=== PATIENT | female | born 1980 | race Caucasian/White ===

== ENCOUNTER 2017-07-28 23:29 | Observation (INO) | payer OTHER ==
[~2017-07-28] VITALS: Ht 172.7 cm; Wt 99.8 kg
[~2017-07-28 23:29] MED LIST: ACET325; AMOCLA500 PO; AZIT250 PO; CALZINTL TP; CEPH500 PO; HYDACE5 PO; INDO50 PO; KETO10 PO; OXYACE5T PO; PRED20 PO; PROM25 PO; RXHYDACE PO; RXOXYACE PO; TRAM50 PO; [UNRECOGNIZED DRUG - OTHER]
[2017-07-28 23:51] LABS: BASOPHILS ABSOLUTE AUTO 0.04 K/mm3 (0.00-0.23); BASOPHILS PERCENT AUTO 0 % (0-2); EOSINOPHILS ABSOLUTE AUTO 0.37 K/mm3 (0.00-0.68); EOSINOPHILS PERCENT AUTO 2 % (0-6); Hematocrit 47.7 % (33.0-51.0); Hemoglobin 15.7 g/dL (11.5-16.0); Mean Corpuscular HGB 30.3 pg (26.0-34.0); Mean Corpuscular HGB Conc 32.9 g/dL (31.5-36.5); Mean Corpuscular Volume 92 fL (80-100); Mean Platelet Volume 11.3 fL (9.1-12.4); Platelet Count 266 K/mm3 (150-400); RDW Coefficient Variation 13.4 % (11.7-14.2); RDW Standard Deviation 45.5 fL (35.1-46.3); Red Blood Cell Count 5.18 M/mm3 (3.80-5.20); White Blood Cell Count 16.21 K/mm3 (4.00-11.30)
[2017-07-28 23:52] LABS: IMMATURE GRAN ABSOLUTE AUTO 0.04 K/mm3 (0.00-0.10); IMMATURE GRAN PERCENT AUTO 0 % (0-1); LYMPHOCYTES ABSOLUTE AUTO 8.12 K/mm3 (0.84-5.20); LYMPHOCYTES PERCENT AUTO 50 % (21-46); MONOCYTES ABSOLUTE AUTO 1.45 K/mm3 (0.16-1.47); MONOCYTES PERCENT AUTO 9 % (4-13); NEUTROPHILS ABSOLUTE AUTO 6.19 K/mm3 (1.96-9.15); NEUTROPHILS PERCENT AUTO 38 % (41-73)
[2017-07-29 00:16] LABS: Alanine Aminotransfer (ALT/SGP 27 U/L (12-78); Albumin, Blood 4.3 g/dL (3.4-5.0); Albumin/Globulin Ratio 1.1 (0.8-1.8); Alk Phos 89 U/L (50-136); Anion Gap 17 mmol/L (6-16); Aspartate Aminotrans (AST/SGOT 22 U/L (12-37); Bilirubin, Total 0.2 mg/dL (0.1-1.0); Blood Urea Nitrogen 12 mg/dL (8-24); Bun/Creatinine Ratio 11.9 (12.0-20.0); CO2, Blood 17 mmol/L (21-32); Calcium, Blood 8.4 mg/dL (8.5-10.1); Chloride, Blood 113 mmol/L (98-108); Creatinine, Blood 1.01 mg/dL (0.40-1.00); Ethanol (Alcohol), Blood, Med 109 mg/dL; Globulin, Blood 3.8 g/dL (2.2-4.0); Glomerular Filtration Rate >60 (60-); Glucose, Blood 166 mg/dL (70-99); Potassium, Blood 3.8 mmol/L (3.5-5.5); Salicylate 5.1 mg/dL (2.8-20.0); Sodium, Blood 147 mmol/L (136-145); Thyroxine (T4) 8.6 ug/dL (4.8-13.9); Total Protein, Blood 8.1 g/dL (6.4-8.2)
[2017-07-29 00:17] LABS: Acetaminophen, Random <2.0 ug/mL (10.0-30.0)
[2017-07-29] MEDS ORDERED: IRON150C PO (00:24)
[2017-07-29 02:18] LABS: Source, Urine Clean Catch
[2017-07-29 02:25] LABS: Bilirubin, Urine Neg (Neg); Blood, Urine 1+ (Neg); Glucose Qualitative, Urine Neg (Neg); Ketones, Urine Neg (Neg); Leukocyte Esterase, Urine Neg (Neg); Nitrite, Urine Neg (Neg); Protein, Urine Neg (Neg); Specific Gravity, Urine 1.015 (1.003-1.022); Urobilinogen, Urine NORM (Normal)
[2017-07-29 02:35] LABS: U Amphetamine Screen Not Detected; U Barbituate Screen Not Detected; U Benzodiazapine Screen DETECTED; U Buprenorphine Screen Not Detected; U Cannabinoids Screen DETECTED; U Cocaine Screen Not Detected; U Methadone Screen Not Detected; U Methamphetamine Screen Not Detected; U Opiates Screen Not Detected; U Oxycodone Screen Not Detected; U Phencyclidine Screen Not Detected; U Propoxyphene Screen Not Detected
[2017-07-29 02:38] LABS: Appearance, Urine Clear (Clear); Bacteria Rare /hpf; Color, Urine Yellow (P-Yellow); Red Blood Cells, Urine Rare /hpf (0-2); Squamous Epithelial Cells Few /hpf (Few); White Blood Cells, Urine Not Seen /hpf (0-5)
[2017-07-29 02:39] LABS: Granular Casts 0-2 /lpf (0); Mucus Light (0-Heavy)
[2017-07-30] MEDS ORDERED: BUDE10.22 INH (11:23)
[2017-07-30] MEDS ORDERED: Synthroid50 MCG PO (11:23)
== END 2017-07-30 12:16 | disposition home or self-care (01) ==
LOC: ER 23:29 → EOR 23:30
PROVIDERS: Emergency Medicine
DX: F10.129 Alcohol abuse with intoxication, unspecified (principal); F23 Brief psychotic disorder; J45.909 Unspecified asthma, uncomplicated; F32.9 Major depressive disorder, single episode, unspecified; E03.9 Hypothyroidism, unspecified; Z88.0 Allergy status to penicillin; Z88.1 Allergy status to other antibiotic agents; Z88.8 Allergy status to other drugs, medicaments and biological substances; Z90.49 Acquired absence of other specified parts of digestive tract; Y90.5 Blood alcohol level of 100-119 mg/100 ml
CPT/HCPCS: 36415; 80053; 81001; 81025; 84436; 84443; 85025; 93005; 93010; 96361; 96372; 99285; G0378; G0480; J1200; J1630; J2060; J7030; P9612

== ENCOUNTER 2018-12-08 15:51 | Emergency (ER) | payer OTHER ==
[~2018-12-08] VITALS: Ht 167.6 cm; Wt 95.2 kg
[~2018-12-08 15:51] MED LIST changes: +BUDE10.22 INH; +IRON150C PO; +Synthroid50 MCG PO
[2018-12-08 16:24] LABS: BASOPHILS ABSOLUTE AUTO 0.02 K/mm3 (0.00-0.23); BASOPHILS PERCENT AUTO 0 % (0-2); EOSINOPHILS ABSOLUTE AUTO 0.37 K/mm3 (0.00-0.68); EOSINOPHILS PERCENT AUTO 4 % (0-6); Hematocrit 43.2 % (33.0-51.0); Hemoglobin 14.6 g/dL (11.5-16.0); IMMATURE GRAN ABSOLUTE AUTO 0.03 K/mm3 (0.00-0.10); IMMATURE GRAN PERCENT AUTO 0 % (0-1); LYMPHOCYTES ABSOLUTE AUTO 4.19 K/mm3 (0.84-5.20); LYMPHOCYTES PERCENT AUTO 39 % (21-46); MONOCYTES ABSOLUTE AUTO 0.86 K/mm3 (0.16-1.47); MONOCYTES PERCENT AUTO 8 % (4-13); Mean Corpuscular HGB 30.9 pg (26.0-34.0); Mean Corpuscular HGB Conc 33.8 g/dL (31.5-36.5); Mean Corpuscular Volume 92 fL (80-100); Mean Platelet Volume 11.2 fL (9.1-12.4); NEUTROPHILS ABSOLUTE AUTO 5.21 K/mm3 (1.96-9.15); NEUTROPHILS PERCENT AUTO 49 % (41-73); Platelet Count 217 K/mm3 (150-400); RDW Standard Deviation 43.9 fL (35.1-46.3); Red Blood Cell Count 4.72 M/mm3 (3.80-5.20); White Blood Cell Count 10.68 K/mm3 (4.00-11.30)
[2018-12-08 16:43] LABS: Alanine Aminotransfer (ALT/SGP 42 U/L (12-78); Albumin, Blood 3.9 g/dL (3.4-5.0); Albumin/Globulin Ratio 1.2 (0.8-1.8); Alk Phos 92 U/L (50-136); Anion Gap 7 mmol/L (6-16); Aspartate Aminotrans (AST/SGOT 24 U/L (12-37); Bilirubin, Total 0.3 mg/dL (0.1-1.0); Blood Urea Nitrogen 18 mg/dL (8-24); Bun/Creatinine Ratio 24.2 (12.0-20.0); CO2, Blood 24 mmol/L (21-32); Calcium, Blood 9.1 mg/dL (8.5-10.1); Chloride, Blood 112 mmol/L (98-108); Creatinine, Blood 0.75 mg/dL (0.40-1.00); Globulin, Blood 3.3 g/dL (2.2-4.0); Glomerular Filtration Rate >60 (60-); Glucose, Blood 104 mg/dL (70-99); Potassium, Blood 3.9 mmol/L (3.5-5.5); Sodium, Blood 143 mmol/L (136-145); Total Protein, Blood 7.2 g/dL (6.4-8.2)
[2018-12-08 16:52] LABS: Source, Urine Clean Catch
[2018-12-08 16:55] LABS: Bilirubin, Urine Neg (Neg); Blood, Urine Neg (Neg); Glucose Qualitative, Urine Neg (Neg); Ketones, Urine Neg (Neg); Leukocyte Esterase, Urine Neg (Neg); Nitrite, Urine Neg (Neg); Protein, Urine Neg (Neg); Urobilinogen, Urine NORM (Normal)
[2018-12-08 17:00] LABS: Appearance, Urine Clear (Clear); Color, Urine Yellow (P-Yellow)
== END 2018-12-08 20:45 | disposition home or self-care (01) ==
LOC: ER 15:51
PROVIDERS: Physician Assistant
DX: R10.9 Unspecified abdominal pain (principal); Z88.0 Allergy status to penicillin; Z88.1 Allergy status to other antibiotic agents; Z88.8 Allergy status to other drugs, medicaments and biological substances; F41.0 Panic disorder [episodic paroxysmal anxiety]; J45.909 Unspecified asthma, uncomplicated; F17.210 Nicotine dependence, cigarettes, uncomplicated
CPT/HCPCS: 36415; 74176; 80053; 81003; 81025; 83690; 85025; 96361; 96374; 96375; 96376; 99284-25; A9270; J1885; J2270; J2405; J7030

== ENCOUNTER 2019-02-05 07:57 | Inpatient (IN) | payer OTHER ==
[~2019-02-05] VITALS: Ht 167.6 cm; Wt 90.7 kg
[2019-02-05 08:43] LABS: BASOPHILS ABSOLUTE AUTO 0.02 K/mm3 (0.00-0.23); BASOPHILS PERCENT AUTO 0 % (0-2); EOSINOPHILS ABSOLUTE AUTO 0.33 K/mm3 (0.00-0.68); EOSINOPHILS PERCENT AUTO 3 % (0-6); Hematocrit 45.8 % (33.0-51.0); Hemoglobin 15.3 g/dL (11.5-16.0); IMMATURE GRAN ABSOLUTE AUTO 0.04 K/mm3 (0.00-0.10); IMMATURE GRAN PERCENT AUTO 0 % (0-1); LYMPHOCYTES ABSOLUTE AUTO 2.54 K/mm3 (0.84-5.20); LYMPHOCYTES PERCENT AUTO 26 % (21-46); MONOCYTES ABSOLUTE AUTO 1.18 K/mm3 (0.16-1.47); MONOCYTES PERCENT AUTO 12 % (4-13); Mean Corpuscular HGB 29.9 pg (26.0-34.0); Mean Corpuscular HGB Conc 33.4 g/dL (31.5-36.5); Mean Corpuscular Volume 90 fL (80-100); Mean Platelet Volume 11.2 fL (9.1-12.4); NEUTROPHILS PERCENT AUTO 59 % (41-73); Platelet Count 262 K/mm3 (150-400); RDW Coefficient Variation 12.4 % (11.7-14.2); RDW Standard Deviation 41.1 fL (35.1-46.3); Red Blood Cell Count 5.12 M/mm3 (3.80-5.20); White Blood Cell Count 9.91 K/mm3 (4.00-11.30)
[2019-02-05 09:09] LABS: Alanine Aminotransfer (ALT/SGP 29 U/L (12-78); Albumin, Blood 3.7 g/dL (3.4-5.0); Albumin/Globulin Ratio 0.9 (0.8-1.8); Alk Phos 116 U/L (50-136); Anion Gap 9 mmol/L (6-16); Aspartate Aminotrans (AST/SGOT 14 U/L (12-37); Bilirubin, Total 0.5 mg/dL (0.1-1.0); Blood Urea Nitrogen 13 mg/dL (8-24); Bun/Creatinine Ratio 14.8 (12.0-20.0); CO2, Blood 22 mmol/L (21-32); Calcium, Blood 9.1 mg/dL (8.5-10.1); Chloride, Blood 112 mmol/L (98-108); Creatinine, Blood 0.88 mg/dL (0.40-1.00); Globulin, Blood 4.1 g/dL (2.2-4.0); Glomerular Filtration Rate >60 (60-); Glucose, Blood 133 mg/dL (70-99); Potassium, Blood 4.1 mmol/L (3.5-5.5); Sodium, Blood 143 mmol/L (136-145); Total Protein, Blood 7.8 g/dL (6.4-8.2)
[2019-02-05] MEDS ORDERED: ALBU90OI INH (09:11)
--- NOTE | 2019-02-05 11:45 | NUR ---
pt arrived to room 235 from er dept [facility] with spouse oriented to room called pharmacy will restart the flagyl pt removed down in the er and dropped it on the floor per the wildland fire fighter pt has est 1/4 of the dose discussed with pt to call and i will sl her iv and let her smoke anytime she wants
--- NOTE | 2019-02-05 12:16 | NUR ---
dr rosenberg ans service called re pain meds and nausea meds abx orders
--- NOTE | 2019-02-05 13:15 | NUR ---
FENT 50 MCG IVP GIVEN FOR PAIN GEN LOWER ABD PT REQ TO BE UNHOOKED TO GO OUT TO SMOKE USING WC S/O PUSHING HER OUT
--- NOTE | 2019-02-05 14:40 | NUR ---
PT RESTING VOIDED WILL SEND SAMPLE TO LAB UNABLE TO GET SAMPLE EARLIER IN ER
[2019-02-05 15:03] LABS: Source, Urine Clean Catch
[2019-02-05 15:05] LABS: Bilirubin, Urine Neg (Neg); Blood, Urine 1+ (Neg); Glucose Qualitative, Urine Neg (Neg); Ketones, Urine 1+ (Neg); Leukocyte Esterase, Urine 1+ (Neg); Nitrite, Urine Neg (Neg); Protein, Urine 2+ (Neg); Urobilinogen, Urine NORM (Normal)
--- NOTE | 2019-02-05 15:27 | NUR ---
pt transported to day surg via [facility]
--- NOTE | 2019-02-05 15:47 | NUR ---
Surgical site prepped with 2% Chlorhexidine cloth wipe. History, Chart, Medications and Allergies reviewed before start of procedure. Lungs clear T/O to Auscultation. Patient confirms NPO status and agrees with scheduled surgery. Pre-Op teaching done. Pt verbalizes understanding.
[2019-02-05 16:16] LABS: Appearance, Urine Clear (Clear); Color, Urine Yellow (P-Yellow)
[2019-02-05 16:17] LABS: Bacteria Mod /hpf; Red Blood Cells, Urine 0-2 /hpf (0-2); Squamous Epithelial Cells Few /hpf (Few); White Blood Cells, Urine 0-2 /hpf (0-5)
--- NOTE | 2019-02-05 19:13 | NUR ---
pt back to room report given to patricia pt having dry heaves groggy luis emptied
--- NOTE | 2019-02-05 20:45 | NUR ---
Patient insist she goes outside to smoke. Educated patient on potential risks. Patient still insists. Pt accompanied by family, pushed in chair.
--- NOTE | 2019-02-06 05:05 | NUR ---
Pt alert and oriented x4. VSS. IVF infusing well. Dressing to abd D/C/I. CRISTA drained 140ml Serosanguineous fluid. Ambulating to bathroom with standby assist. Voiding freely. Going outside to smoke. Complaints of abd Pain and nausea/vomiting. Medicated as ordered.
--- NOTE | 2019-02-06 09:41 | NUR ---
PT OUTSIDE TO SMOKE AT 0745 VIA WHEELCHAIR AND SO. DECLINED SMOKING CESSATION EDUCATION AND NICOTINE PATCH. PT VERBALIZED SAFETY AND FALL PREVENTION MEASURES.
--- NOTE | 2019-02-06 17:11 | NUR ---
DR. OSCAR IN TO SEE PT AT THIS TIME.
--- NOTE | 2019-02-06 17:53 | NUR ---
PT OUTSIDE TO SMOKE WITH HER FATHER VIA WHEELCHAIR.
--- NOTE | 2019-02-06 18:10 | NUR ---
SHIFT SUMMARY PT A&OX4 WITH VSS T/O SHIFT. C/O NAUSEA AND HEADACHE THIS AFTERNOON, DOCTOR NOTIFIED AND NEW ORDERS OBTAINED FOR MEDICATION. PT MEDICATED PER EMAR AND ADVISED TO DECREASED PO INTAKE UNTIL NAUSEA SUBSIDES. CRISTA DRAIN IN PLACE AND DRAINING SS T/O SHIFT. PATIENT AMBULATED IN HALLWAY AND IND IN ROOM. ENCOURAGED TO CONT. AMBULATION AND I.S. USE. PT CURRENTLY OUTSIDE SMOKING WITH FATHER.
[2019-02-07 04:11] LABS: BASOPHILS ABSOLUTE AUTO 0.02 K/mm3 (0.00-0.23); BASOPHILS PERCENT AUTO 0 % (0-2); EOSINOPHILS ABSOLUTE AUTO 0.46 K/mm3 (0.00-0.68); EOSINOPHILS PERCENT AUTO 5 % (0-6); Hematocrit 38.2 % (33.0-51.0); Hemoglobin 12.1 g/dL (11.5-16.0); IMMATURE GRAN ABSOLUTE AUTO 0.02 K/mm3 (0.00-0.10); IMMATURE GRAN PERCENT AUTO 0 % (0-1); LYMPHOCYTES ABSOLUTE AUTO 1.98 K/mm3 (0.84-5.20); LYMPHOCYTES PERCENT AUTO 21 % (21-46); MONOCYTES ABSOLUTE AUTO 1.11 K/mm3 (0.16-1.47); MONOCYTES PERCENT AUTO 12 % (4-13); Mean Corpuscular HGB 29.6 pg (26.0-34.0); Mean Corpuscular HGB Conc 31.7 g/dL (31.5-36.5); NEUTROPHILS ABSOLUTE AUTO 5.83 K/mm3 (1.96-9.15); NEUTROPHILS PERCENT AUTO 62 % (41-73); Platelet Count 219 K/mm3 (150-400); RDW Coefficient Variation 12.7 % (11.7-14.2); RDW Standard Deviation 43.8 fL (35.1-46.3); Red Blood Cell Count 4.09 M/mm3 (3.80-5.20); White Blood Cell Count 9.42 K/mm3 (4.00-11.30)
[2019-02-07 04:13] LABS: Mean Corpuscular Volume 93 fL (80-100)
[2019-02-07 04:32] LABS: Anion Gap 4 mmol/L (6-16); Blood Urea Nitrogen 8 mg/dL (8-24); Bun/Creatinine Ratio 8.8 (12.0-20.0); CO2, Blood 27 mmol/L (21-32); Calcium, Blood 8.1 mg/dL (8.5-10.1); Chloride, Blood 114 mmol/L (98-108); Creatinine, Blood 0.91 mg/dL (0.40-1.00); Glomerular Filtration Rate >60 (60-); Glucose, Blood 87 mg/dL (70-99); Potassium, Blood 3.7 mmol/L (3.5-5.5); Sodium, Blood 145 mmol/L (136-145)
--- NOTE | 2019-02-07 04:37 | NUR ---
Patient alert and oriented. VSS. CRISTA had 75ml serosanguineous drainage. Complaints of Nausea and pain, medicated as ordered. Ambulating to bathroom. Voiding freely. Passing gas.
--- NOTE | 2019-02-07 16:21 | NUR ---
PT OUT OF ROOM AT THIS TIME.
--- NOTE | 2019-02-07 17:16 | NUR ---
SHIFT SUMMARY PT A&0X4 T/O SHIFT WITH VSS AND NO ACUTE CHANGES. PAIN CONTROLLED WELL WITH PO MEDS. TOLERATING REGULAR DIET WELL. AMBULATING IN HALLWAYS AND IND IN ROOM. MADE SEVERAL TRIPS OUTSIDE TO SMOKE T/O SHIFT. BM TODAY AND VOIDING WELL. CRISTA IN PLACE AND DRAINING SEROUS FLUID. DRESSING C/D/I.
--- NOTE | 2019-02-07 19:00 | NUR ---
PT SHOWERED THIS EVENING, CHANGED CRISTA DRESSING AFTERWARDS. NOW AMBULATING IN HALLS IND.
--- NOTE | 2019-02-08 06:05 | NUR ---
SHIFT SUMMARY PT POD#3 APPI. AAOX4. DISCOMFORT CONTROLLED WITH 2 PAIN PILLS X1 THIS SHIFT. NO NAUSEA/EMESIS. ABD INCISONS X3 WITH STERI STRIPS C/D/I. CRISTA SECURE / COMPRESSED WITH SMALL AMOUNT SS DRAINAGE OUT. PT INDEPENDENT IN ROOM + OUT IN HALLS TO AMBULATE. PT RESTING WELL THIS AM WITH CALL LIGHT IN REACH AT THIS TIME.
[2019-02-08] MEDS ORDERED: HYDR1TAB94 PO (11:41)
[2019-02-08] MEDS ORDERED: LEVFLO500 PO (11:42)
--- NOTE | 2019-02-08 12:30 | NUR ---
CRISTA DRAIN REMOVED BY SURGEON. GAUZE AND TEGADERM DRESSING IN PLACE.
--- NOTE | 2019-02-08 13:10 | NUR ---
DISCHARGE INSTRUCTIONS GIVEN TO PT BY RN. PT REPORTS UNDERSTANDING. RX SCRIPTS SENT WITH PT. PERSONAL BELONGINGS SENT HOME WITH PT. NO IV IN PLACE. PT WALKED OUT TO PERSONAL VEHICLE INDEPENDANTLY WITH FAMILY. PT TOLERATING FOOD AND FLUIDS AND VOIDING.
== END 2019-02-08 13:08 | disposition home or self-care (01) | DRG 340 ==
LOC: ER 07:57 → SURS 07:58 → EDBEDREQ 10:57 → SURS 11:18
PROVIDERS: Physician Assistant; ADMIT Surgery
PROC: 0DTJ4ZZ Resection of Appendix, Percutaneous Endoscopic Approach (ICD-10-PCS; principal; 2019-02-05 14:15)
DX: K35.32 Acute appendicitis with perforation, localized peritonitis, and gangrene, without abscess (principal); F17.210 Nicotine dependence, cigarettes, uncomplicated; Z88.1 Allergy status to other antibiotic agents; Z88.0 Allergy status to penicillin
CPT/HCPCS: 36415; 74177; 80048; 80053; 81001; 83690; 84703; 85025; 87086; 88304; 94640; 94760; 96365-59; 96366; 96367; 96372; 96375; 96376; 99285-25; A9270-GY; G0378; J0330; J0692; J1170; J1650; J1885; J2060; J2250; J2405; J2704; J2765; J3010; J7120; Q9967

== ENCOUNTER 2019-05-17 08:49 | Emergency (ER) | payer OTHER ==
[~2019-05-17] VITALS: Ht 167.6 cm; Wt 90.7 kg
[~2019-05-17 08:49] MED LIST changes: +ALBU90OI INH; +HYDR1TAB94 PO; +LEVFLO500 PO
[2019-05-17 12:35] LABS: Calcium, Ionized (POC) 1.19 mmol/L (1.10-1.46); Chloride (POC) 111 mmol/L (98-108); Creatinine (POC) 0.8 mg/dL (0.6-1.0); Glucose (ISTAT POC) 90 mg/dL (70-99); Hemoglobin (POC) 15.3 g/dL (12.0-16.0); Potassium (POC) 4.1 mmol/L (3.5-5.5); Sodium (POC) 144 mmol/L (135-148); Total CO2 (POC) 24 mmol/L (21-32)
== END 2019-05-17 13:19 | disposition home or self-care (01) ==
LOC: ER 08:49
PROVIDERS: Physician Assistant
DX: R07.81 Pleurodynia (principal); F41.0 Panic disorder [episodic paroxysmal anxiety]; E03.9 Hypothyroidism, unspecified; F17.210 Nicotine dependence, cigarettes, uncomplicated; Z88.0 Allergy status to penicillin; Z88.8 Allergy status to other drugs, medicaments and biological substances; Z79.899 Other long term (current) drug therapy
CPT/HCPCS: 71101; 80047; 85014; 99283-25

== ENCOUNTER 2023-10-22 16:09 | Emergency (ER) | payer OTHER ==
[~2023-10-22] VITALS: Ht 167.6 cm; Wt 95.2 kg
[~2023-10-22 16:09] MED LIST changes: +CIPR500 PO; +MOTRIN IB200 MG PO; +ONDA4ODT SL; +Vistaril50 MG PO
[2023-10-22 16:13] VITALS: BP 148/112
[2023-10-22] MEDS ORDERED: Ketorolac Tromethamine 30mg Vial IM ONE (16:20)
== END 2023-10-22 17:50 | disposition home or self-care (01) ==
LOC: ER 16:09
DX: M25.532 Pain in left wrist (principal); M25.512 Pain in left shoulder; J45.909 Unspecified asthma, uncomplicated; F17.210 Nicotine dependence, cigarettes, uncomplicated; Z88.0 Allergy status to penicillin; Z88.8 Allergy status to other drugs, medicaments and biological substances; Z88.1 Allergy status to other antibiotic agents; Z79.890 Hormone replacement therapy; Z79.899 Other long term (current) drug therapy
CPT/HCPCS: 73030; 73110; 96372; 99283-25; J1885

== ENCOUNTER 2024-06-11 09:45 | Emergency (ER) | payer OTHER ==
[~2024-06-11] VITALS: Ht 167.6 cm; Wt 95.2 kg
[~2024-06-11 09:45] MED LIST changes: +Robaxin750 MG PO
[2024-06-11 10:50] LABS: BASOPHILS ABSOLUTE AUTO 0.02 K/mm3 (0.00-0.23); BASOPHILS PERCENT AUTO 0 % (0-2); EOSINOPHILS ABSOLUTE AUTO 0.54 K/mm3 (0.00-0.68); EOSINOPHILS PERCENT AUTO 7 % (0-6); Hematocrit 40.5 % (33.0-51.0); Hemoglobin 12.7 g/dL (11.5-16.0); IMMATURE GRAN ABSOLUTE AUTO 0.01 K/mm3 (0.00-0.10); IMMATURE GRAN PERCENT AUTO 0 % (0-1); LYMPHOCYTES ABSOLUTE AUTO 2.76 K/mm3 (0.84-5.20); LYMPHOCYTES PERCENT AUTO 37 % (21-46); MONOCYTES ABSOLUTE AUTO 0.71 K/mm3 (0.16-1.47); MONOCYTES PERCENT AUTO 10 % (4-13); Mean Corpuscular HGB Conc 31.4 g/dL (31.5-36.5); Mean Corpuscular Volume 86 fL (80-100); Mean Platelet Volume 10.3 fL (9.1-12.4); NEUTROPHILS PERCENT AUTO 46 % (41-73); Platelet Count 261 K/mm3 (150-400); RDW Standard Deviation 47.8 fL (35.1-46.3); White Blood Cell Count 7.44 K/mm3 (4.00-11.30)
[2024-06-11 11:02] LABS: Albumin, Blood 3.5 g/dL (3.4-5.0); Albumin/Globulin Ratio 0.9 (0.8-1.8); Bilirubin, Total 0.3 mg/dL (0.1-1.0); Bun/Creatinine Ratio 25.6 (12.0-20.0); Calcium, Blood 8.8 mg/dL (8.5-10.1); Creatinine, Blood 0.63 mg/dL (0.40-1.00); Globulin, Blood 3.7 g/dL (2.2-4.0); Potassium, Blood 4.5 mmol/L (3.5-5.5); Total Protein, Blood 7.2 g/dL (6.4-8.2)
[2024-06-11 11:19] VITALS: BP 132/74
[2024-06-11] MEDS ORDERED: Loratadine 10 MG Tab PO ONE (11:35)
== END 2024-06-11 11:44 | disposition home or self-care (01) ==
LOC: ER 09:45
PROVIDERS: Emergency Medicine
DX: L50.0 Allergic urticaria (principal); T50.905A Adverse effect of unspecified drugs, medicaments and biological substances, initial encounter; J45.909 Unspecified asthma, uncomplicated; E03.9 Hypothyroidism, unspecified; M51.369 Other intervertebral disc degeneration, lumbar region without mention of lumbar back pain or lower extremity pain; F17.210 Nicotine dependence, cigarettes, uncomplicated; Z88.0 Allergy status to penicillin; Z88.8 Allergy status to other drugs, medicaments and biological substances; Z88.1 Allergy status to other antibiotic agents; Z79.890 Hormone replacement therapy; Z79.899 Other long term (current) drug therapy
CPT/HCPCS: 80053; 84703; 85025; A9270

== ENCOUNTER → 2024-08-12 | Outpatient (CLI) | payer OTHER ==
[2024-08-21 07:04] LABS: HPV HIGH RISK BY TMA Not Detected; HPV SOURCE Cervical
== END | disposition home or self-care (01) ==
LOC: LAB 18:56 → LAB SHORT 18:56
PROVIDERS: Nurse Practitioner Family
DX: Z01.419 Encounter for gynecological examination (general) (routine) without abnormal findings (principal)
CPT/HCPCS: 87624; G0123